=== PATIENT | female | born 1950 | race Caucasian/White ===

== ENCOUNTER 2023-09-03 20:34 | Inpatient (IN) ==
[2023-09-03 20:54] VITALS: BMI 26.6
[2023-09-03 21:24] LABS: BASOPHILS # (AUTO) 0.1 K/uL (0-0.2); BASOPHILS % (AUTO) 0.4 % (0.0-3.0); EOSINOPHILS # (AUTO) 0.1 K/ul (0.0-0.7); EOSINOPHILS % (AUTO) 0.5 % (0.0-7.0); HEMATOCRIT 37.5 % (37.0-47.0); HEMOGLOBIN 12.8 g/dl (12.0-16.0); IMMATURE GRANULOCYTE # (AUTO) 0.2 (0.0-1.0); IMMATURE GRANULOCYTE % (AUTO) 1.1 % (0.0-5.0); LYMPHOCYTES # (AUTO) 0.9 K/uL (0.60-3.4); LYMPHOCYTES % (AUTO) 5.3 (10.0-50.0); MEAN CORPUSCULAR HEMOGLOBIN 31.1 pg (27.0-31.0); MEAN CORPUSCULAR HGB CONC 34.1 (31.8-35.4); MONOCYTES # (AUTO) 1.7 K/uL (0.4-2.0); MONOCYTES % (AUTO) 10.3 (0-10); NEUTROPHILS # (AUTO) 13.3 K/ul (2.0-6.9); NEUTROPHILS % (AUTO) 82.4 % (42.2-75.2); PLATELET COUNT 207 10^3/uL (140-440); RDW COEFFICIENT OF VARIATION 11.8 % (11.6-14.8); RED BLOOD COUNT 4.12 10^6/ul (4.20-5.40); WHITE BLOOD COUNT 16.17 K/ul (4.6-10.2)
--- NOTE | 2023-09-03 21:28 | ED.PDOC ---
General ED Provider: Dr. ANA PARKINSON MD Chief Complaint: Abdominal Pain Stated Complaint: 72 years old female past medical history of anal cancer, A-fib status post Watchman procedure not on anticoagulation coming to the emergency room for epigastric pain patient reports the pain started at 4:00 this afternoon patient describes the pain as sharp and epigastric area nonradiating with no aggravating alleviating factors associated with nausea but no vomiting, admits to having diarrhea alternating with constipation and recent episode of colitis but the pain this time is different. Patient feels warm but did not check her temperature. Denies any urinary problems she has a history of kidney stones but that was many years ago. Otherwise she denies any chest pain, shortness of breath, headache. Time Seen by Provider: 09/03/23 20:45 Information Source: Patient and Family Nursing and Triage Documentation Reviewed and Agree: Yes What is Opioid Naive?: *Opioid Naive implies the patient is not already taking opioids or not chronically receiving opioids on a daily basis. *PRN dosing is not "usually" associated with tolerance. *Patients are at higher risk of over-sedation and aspiration. What is Opioid Tolerant?: *Opioid Tolerance implies less than the expected response to an opioid. *Acquired tolerance is defined by the patient taking 60mg of oral morphine daily (or equianalgesic dose of another opioid) for 1 week or more. *Often associated with chronic pain. *May take more than usual dose to achieve desired pain control. Review of Systems Review Of Systems Constitutional: Reports No symptoms All Other Systems: Reviewed and Negative Physical Exam Physical Exam Appearance: Reports Well-appearing and Well-nourished Ill-appearing: None Pain Distress: Mild Eyes: Reports EDER ENT: Reports Ears normal and Nose normal Respiratory: Reports Airway patent, Breath sounds clear and Breath sounds equal Cardiovascular: Reports RRR, Pulses normal, No rub and No murmur GI/: Reports Soft, No masses, Bowel sounds normal and Tender (Epigastric and right CVA) Musculoskeletal: Reports Normal strength and ROM intact Skin: Reports Warm and Normal color Neurological: Reports Sensation intact and Motor intact Psychiatric: Reports Affect appropriate Course Course 09/03/23 21:18 09/03/23 21:18 Orders, Labs, Meds: Lab Review 09/03/23 09/03/23 09/03/23 21:08 21:18 22:31 WBC 16.17 H RBC 4.12 L Hgb 12.8 Hct 37.5 MCV 91.0 MCH 31.1 H MCHC 34.1 RDW Coeff of Daniel 11.8 Plt Count 207 Immature Gran % (Auto) 1.1 Neut % (Auto) 82.4 H Lymph % (Auto) 5.3 L Sebastian % (Auto) 10.3 H Eos % (Auto) 0.5 Baso % (Auto) 0.4 Neut # (Auto) 13.3 H Lymph # (Auto) 0.9 Sebastian # (Auto) 1.7 Eos # (Auto) 0.1 Baso # (Auto) 0.1 Immature Gran # (Auto) 0.2 Sodium 137.2 Potassium 3.94 Chloride 105.3 Carbon Dioxide 21.2 L Anion Gap 14.64 BUN 27.7 H Creatinine 1.56 H Estimated GFR (MDRD) 32.00 BUN/Creatinine Ratio 17.75 Glucose 120.1 H Lactic Acid 1.56 Calcium 10.01 Total Bilirubin 0.86 AST 28.5 ALT 27.6 Alkaline Phosphatase 98.4 Total Protein 7.98 Albumin 4.92 Globulin 3.06 Albumin/Globulin Ratio 1.60 Lipase 95.9 SARS CoV-2 RNA Rapid VANESSA Negative Orders Category Date Time Status OBSERVATION [PLACE PATIENT OBSERVATION] .TO [facility] ADMISSION 09/03/23 22:39 Active (MONITORED BED) ACTIVITY .Up With Assistance CARE 09/03/23 22:33 Active INTAKE & OUTPUT Q8HR CARE 09/03/23 22:33 Active IV ACCESS ONCE CARE 09/03/23 21:13 Active TELEMETRY MONITORING TELE CARE 09/03/23 22:39 Active VITAL SIGNS Q4HR CARE 09/03/23 22:33 Active NOTHING BY MOUTH DIETARY 09/04/23 Breakfast Ordered BLOOD CULTURE Stat LAB 09/03/23 22:22 Received CBC W/ AUTO DIFF DAILY@0600 LAB 09/04/23 06:00 Ordered CBC W/ AUTO DIFF DAILY@0600 LAB 09/05/23 06:00 Ordered CBC W/ AUTO DIFF Stat LAB 09/03/23 21:18 Completed CMP [COMPREHENSIVE METABOLIC PANEL] Stat LAB 09/03/23 21:18 Completed COMPREHENSIVE METABOLIC PANEL DAILY@0600 LAB 09/04/23 06:00 Ordered COMPREHENSIVE METABOLIC PANEL DAILY@0600 LAB 09/05/23 06:00 Ordered COVID [SARS COV-2 RNA RAPID VANESSA] Stat LAB 09/03/23 22:31 Completed LACTIC ACID Stat LAB 09/03/23 21:08 Completed LIPASE Stat LAB 09/03/23 21:18 Completed URINALYSIS C & S IF INDICATED Stat LAB 09/03/23 23:00 Ordered Acetaminophen Meds 09/03/23 22:16 Discontinued 1,000 mg in 100 ml IV ONCE Acetaminophen Meds 09/03/23 22:34 Active 1,000 mg in 100 ml IV Q6HR Ceftriaxone/D5w 1 gm Premix [Rocephin 1 gm/50 ml D5w] Meds 09/03/23 22:09 Discontinued 1 gm in 50 ml IV ONCE Ceftriaxone/D5w 1 gm Premix [Rocephin 1 gm/50 ml D5w] Meds 09/04/23 22:00 Active 1 gm in 50 ml IV Q24H Ketorolac Tromethamine [Toradol] Meds 09/03/23 22:34 Active 15 mg IVP Q6HR PRN Ketorolac Tromethamine [Toradol] Meds 09/03/23 21:13 Discontinued 30 mg IVP ONCE STA Metoclopramide HCl [Reglan] Meds 09/03/23 22:37 Active 5 mg IVP Q6HR PRN Metronidazole/Sodium Chloride [Flagyl 500 mg/100 ml] Meds 09/03/23 22:09 Discontinued 500 mg in 100 ml IV ONCE Metronidazole/Sodium Chloride [Flagyl 500 mg/100 ml] Meds 09/04/23 05:00 Active 500 mg in 100 ml IV Q8HR Ondansetron HCl/Pf [Zofran 4 mg/2 ml] Meds 09/03/23 21:14 Discontinued 4 mg IVP ONCE STA Ondansetron HCl/Pf [Zofran 4 mg/2 ml] Meds 09/03/23 22:37 Active 4 mg IVP Q6H PRN Sodium Chloride 0.9% [Sodium Chloride] 1,000 ml Meds 09/03/23 21:[address] ABDOMEN/PELVIS WO CONTRAST Stat RADS 09/03/23 21:13 Completed Medications Generic Name Dose Route Start Last Admin Trade Name Freq PRN Reason Stop Dose Admin CEFTRIAXONE/D5W 1 GM PREMIX 1 gm in 50 mls @ 75 mls/hr 09/04/23 22:00 Rocephin 1 Gm/50 Ml D5w IV 09/07/23 21:59 Q24H DIDI Metronidazole 500 mg in 100 mls @ 100 mls/hr 09/04/23 05:00 Flagyl 500 Mg/100 Ml IV 09/07/23 04:59 Q8HR DIDI Acetaminophen 1,000 mg in 100 mls @ 400 mls/hr 09/03/23 22:34 Acetaminophen IV Q6HR PRN Pain Ketorolac Tromethamine 15 mg 09/03/23 22:34 Ketorolac Tromethamine 15 Mg/Ml Vial IVP 09/07/23 22:36 Q6HR PRN MODERATE PAIN Metoclopramide HCl 5 mg 09/03/23 22:37 Metoclopramide Hcl 10 Mg/2 Ml IVP Q6HR PRN nausea Ondansetron HCl 4 mg 09/03/23 22:37 Ondansetron Hcl/Pf 4 Mg/2 Ml Sdv IVP Q6H PRN Nausea / Vomiting Discontinued Medications Generic Name Dose Route Start Last Admin Trade Name Freq PRN Reason Stop Dose Admin Sodium Chloride 1,000 mls @ 1,000 mls/hr 09/03/23 21:13 09/03/23 21:46 Sodium Chloride IV 09/03/23 22:12 1,000 mls/hr BOLUS ONE Administration Metronidazole 500 mg in 100 mls @ 100 mls/hr 09/03/23 22:09 Flagyl 500 Mg/100 Ml IV 09/03/23 23:08 ONCE ONE CEFTRIAXONE/D5W 1 GM PREMIX 1 gm in 50 mls @ 100 mls/hr 09/03/23 22:09 09/03/23 22:51 Rocephin 1 Gm/50 Ml D5w IV 09/03/23 22:38 100 mls/hr ONCE ONE Administration Acetaminophen 1,000 mg in 100 mls @ 400 mls/hr 09/03/23 22:16 09/03/23 22:25 Acetaminophen IV 09/03/23 22:30 400 mls/hr ONCE ONE Administration Ketorolac Tromethamine 30 mg 09/03/23 21:13 09/03/23 21:50 Ketorolac Tromethamine 30 Mg/Ml Vial IVP 09/03/23 21:14 30 mg ONCE STA Administration Ondansetron HCl 4 mg 09/03/23 21:14 09/03/23 21:50 Ondansetron Hcl/Pf 4 Mg/2 Ml Sdv IVP 09/03/23 21:15 4 mg ONCE STA Administration Vital Signs: Temp Pulse Resp BP Pulse Ox 09/03/23 20:43 97.7 F 79 20 152/66 H 100 CAT scan abdomen pelvis showed thickening of the wall of the cecum along with leukocytosis consistent with ascending colitis patient was given Zofran 4 mg for nausea Toradol 30 mg IV for the pain blood cultures were obtained patient was ordered 1 g Rocephin and 500 mg of metronidazole IV. Pain is not controlled with Toradol patient was given 1 g of Tylenol IV. Given the leukocytosis and the CT scan finding patient will need further IV antibiotics called hospitalist on-call Leandra discussed the patient case with her and she cleared the patient to be admitted under her services care plan discussed with the patient all questions and concerns were addressed patient is agreeable for admission Discharge Plan Discharge Patient Disposition: ADMITTED INPATIENT Discharge Problem: Colitis Prescriptions: No Action propafenone 225 mg tablet 225 mg PO TID levothyroxine 50 mcg tablet 50 mcg PO QAM hydrochlorothiazide 25 mg tablet 25 mg PO QAM irbesartan 150 mg tablet 150 mg PO BID rosuvastatin 5 mg tablet 5 mg PO BEDTIME diltiazem HCl [Cardizem] 120 mg tablet 120 mg PO BID Rx Instructions: one mid day, one at bedtime aspirin [Adult Low Dose Aspirin] 81 mg tablet,delayed release (DR/EC) 81 mg PO DAILY Did you review [place] [employer] for ALL controlled substances?: Not Applicable ED Provider: ANA PARKINSON Condition: Stable Physician Progress Note: []
[2023-09-03 21:36] LABS: ALANINE AMINOTRANSFERASE 27.6 U/L (0-35); ALBUMIN 4.92 g/dL (3.5-5.0); ALKALINE PHOSPHATASE 98.4 U/L (53-141); ASPARTATE AMINO TRANSFERASE 28.5 U/L (14-36); BILIRUBIN,TOTAL 0.86 mg/dL (0.2-1.3); BLOOD UREA NITROGEN 27.7 mg/dL (7-17); CALCIUM 10.01 mg/dL (8.4-10.2); CARBON DIOXIDE 21.2 mmol/L (22-30.0); CHLORIDE 105.3 mmol/L (98-107); CREATININE 1.56 mg/dL (0.60-1.30); GLUCOSE 120.1 mg/dL (74-106); LIPASE 95.9 U/L (23-300); POTASSIUM 3.94 mmol/L (3.5-5.1); SODIUM 137.2 mmol/L (134.5-145); TOTAL PROTEIN 7.98 g/dL (6.3-8.2)
[2023-09-03] MEDS: SODIUM CHLORIDE 1,000 ML IV ONE (21:46)
[2023-09-03] MEDS: TORADOL IVP STA (21:50)
[2023-09-03] MEDS: ZOFRAN 4 MG/2 ML IVP STA (21:50)
--- NOTE | 2023-09-03 21:56 | CT ---
EXAM: CT OF THE ABDOMEN AND PELVIS WITHOUT CONTRAST. TECHNIQUE: CT of the abdomen and pelvis was performed without the use of contrast. Multiplanar refo rmats were performed. HISTORY: Abdominal pain. COMPARISON: None. FINDINGS: Evaluation of solid organs and blood vessels is suboptimal without the benefit of contrast. Imaged lower thorax: 1.0 cm nodule, partially imaged on axial image 1. 0.3 cm nodule in the right lo wer lobe. Coronary artery calcificaions. Liver: Diffuse liver parenchymal hypoattenuation. A few scattered calcified granulomas in the liver. Gallbladder/Bile Ducts: No biliary dilation. Gallbladder is unremarkable. Spleen: Scattered calcified granulomas in the spleen. Pancreas: Unremarkable. Adrenals: Unremarkable. Kidneys/Ureters: Unremarkable. Bowel/mesentery/peritoneum: Small hiatal hernia. Normal appendix. Focal thickening of the wall of the cecum. No free air or ascites. Retroperitoneum/vessels: No aortic aneurysm. Mild scattered atherosclerotic calcifications. Pelvis: Post hysterectomy. Bones/body wall: No aggressive lesion identified. Multilevel degenerative changes of the spine. IMPRESSION: Focal thickening of the wall the cecum could represent infection/inflammation or neoplasm. [place] py should be considered if not performed recently. 1 cm nodule in the right lobe of the lung. Recommend further evaluation with chest CT. Small hiatal hernia. Fatty infiltration of the liver. Atherosclerosis with coronary calcifications. All CT scans are performed using dose optimization techniques as appropriate to the performed exam an d include at least one of the following: Automated exposure control, adjustment of the mA and/or kV according t o size, and the use of iterative reconstruction technique.
[2023-09-03] MEDS: ACETAMINOPHEN 1,000 MG/100 ML BAG IV ONE (22:25)
[2023-09-03] MEDS ORDERED: ZOFRAN 4 MG/2 ML IVP PRN (22:37)
[2023-09-03 22:50] LABS: SARS COV-2 RNA RAPID NAAT NEGATIVE (NEGATIVE)
[2023-09-03] MEDS: ROCEPHIN 1 GM/50 ML D5W 1 GM/50 ML BAG IV ONE (22:51)
[2023-09-03] MEDS ORDERED: TORADOL IVP PRN (23:14)
[2023-09-03 23:18] LABS: BILIRUBIN,URINE Negative (NEGATIVE); CLARITY,URINE Clear (CLEAR); COLOR,URINE Yellow (YELLOW); GLUCOSE, URINE (UA) Negative (NEGATIVE); KETONES,URINE 1+ (NEGATIVE); LEUKOCYTE ESTERASE ,URINE 2+ (NEGATIVE); NITRITE,URINE Negative (NEGATIVE); PH,URINE 6.5 (5-9); PROTEIN,URINE Negative (NEGATIVE); URINE, BLOOD Trace-intact (NEGATIVE); UROBILINOGEN,URINE 0.2 (0.2)
[2023-09-03 23:21] LABS: BACTERIA,URINE 2+ (NOT PRESENT); SQUAMOUS EPITHELIAL CELL,UR 0-2 (0-5)
[2023-09-03] MEDS: FLAGYL 500 MG/100 ML 500 MG/100 ML BAG IV ONE (23:43)
[2023-09-04] MEDS: TORADOL IVP PRN (01:29)
[2023-09-04] MEDS ORDERED: PROPAFENONE 225 MG PO SCH (01:45)
[2023-09-04] MEDS: SYNTHROID PO SCH (05:41)
[2023-09-04] MEDS: FLAGYL 500 MG/100 ML 500 MG/100 ML BAG IV SCH (05:41)
[2023-09-04 06:27] LABS: ALANINE AMINOTRANSFERASE 25.6 U/L (0-35); ALBUMIN 4.67 g/dL (3.5-5.0); ALKALINE PHOSPHATASE 85.9 U/L (53-141); ASPARTATE AMINO TRANSFERASE 26.1 U/L (14-36); BILIRUBIN,TOTAL 0.65 mg/dL (0.2-1.3); BLOOD UREA NITROGEN 21.1 mg/dL (7-17); CALCIUM 9.5 mg/dL (8.4-10.2); CARBON DIOXIDE 21.1 mmol/L (22-30.0); CHLORIDE 107.8 mmol/L (98-107); CREATININE 1.28 mg/dL (0.60-1.30); GLUCOSE 101.7 mg/dL (74-106); POTASSIUM 3.63 mmol/L (3.5-5.1); SODIUM 138.5 mmol/L (134.5-145); TOTAL PROTEIN 7.48 g/dL (6.3-8.2)
[2023-09-04 07:15] LABS: BASOPHILS % (AUTO) 0.2 % (0.0-3.0); EOSINOPHILS # (AUTO) 0.1 K/ul (0.0-0.7); EOSINOPHILS % (AUTO) 0.5 % (0.0-7.0); HEMOGLOBIN 12.1 g/dl (12.0-16.0); IMMATURE GRANULOCYTE # (AUTO) 0.1 (0.0-1.0); IMMATURE GRANULOCYTE % (AUTO) 1.1 % (0.0-5.0); LYMPHOCYTES # (AUTO) 0.8 K/uL (0.60-3.4); LYMPHOCYTES % (AUTO) 6.3 (10.0-50.0); MEAN CORPUSCULAR HEMOGLOBIN 31.2 pg (27.0-31.0); MEAN CORPUSCULAR HGB CONC 33.6 (31.8-35.4); MEAN CORPUSCULAR VOLUME 92.8 fl (81.0-99.0); MONOCYTES # (AUTO) 2.1 K/uL (0.4-2.0); MONOCYTES % (AUTO) 16.1 (0-10); NEUTROPHILS # (AUTO) 9.8 K/ul (2.0-6.9); NEUTROPHILS % (AUTO) 75.8 % (42.2-75.2); PLATELET COUNT 175 10^3/uL (140-440); RDW COEFFICIENT OF VARIATION 12.1 % (11.6-14.8); RED BLOOD COUNT 3.88 10^6/ul (4.20-5.40); WHITE BLOOD COUNT 12.89 K/ul (4.6-10.2)
[2023-09-04] MEDS: ACETAMINOPHEN 1,000 MG/100 ML BAG IV PRN (07:29)
[2023-09-04] MEDS: AVAPRO PO SCH (09:36)
[2023-09-04] MEDS: CARDIZEM PO SCH (09:36)
[2023-09-04] MEDS: ASPIRIN EC PO SCH (09:36)
[2023-09-04] MEDS: HYDROCHLOROTHIAZIDE PO SCH (09:36)
[2023-09-04] MEDS: PROCARDIA XL PO SCH (09:37)
[2023-09-04] MEDS: RYTHMOL PO SCH (09:39)
[2023-09-04] MEDS: MYLANTA SUSP PO STA (10:22)
[2023-09-04] MEDS: PROTONIX IVP SCH (10:31)
[2023-09-04] MEDS: PEPCID IVP SCH (10:31)
[2023-09-04] MEDS ORDERED: NARCAN IM PRN ×2 (11:16→21:00)
--- NOTE | 2023-09-04 12:26 | PCM ---
Date of Service Date Seen by Provider: 09/04/23 Time Seen by Provider: 08:50 Admit Day/Time Admission Date: 09/03/23 Admission Time: 22:39 Reason for Admission Chief Complaint: COLITIS Hospital Provider Hospital Provider: Niranjan Dial Pa-C, [facility] History of Present Illness History of Present Illness: Patient is a 72 year old female with pmhx of anal cancer s/p resection/chemo/radiation 4 years ago, hypertension, a fib s/p watchman device, who presents to ER with complaints of abdominal pain. Pt states she had right sided colitis a year ago requiring antibiotics. Last colonoscopy was summer which was normal, return in 5 years per patient. She denies vomiting but has had some nausea. No change in BMs. Describes pain as epigastric, stabbing. Does not take NSAIDs. In ER ct noted inflammation/infection of cecum area. WBC count was 16. She was given rocephin and metronidazole. Admitted to med surg. On my evaluation today patient complains of epigastric pain, no pain in RLQ area. Case Discussed With Case Discussed With: Patient's case was discussed with the ER Physicians, Dr. Payne [facility] Medical History Kidney disease N28.9 - Disorder of kidney and ureter, unspecified (ICD-10) Hemorrhoid K64.9 - Unspecified hemorrhoids (ICD-10) GI bleeding K92.2 - Gastrointestinal hemorrhage, unspecified (ICD-10) Presence of Watchman left atrial appendage closure device Z95.818 - Presence of other cardiac implants and grafts (ICD-10) Anal cancer C21.0 - Malignant neoplasm of anus, unspecified (ICD-10) Uncontrolled hypertension I10 - Essential (primary) hypertension (ICD-10) Implantable loop recorder present Z95.818 - Presence of other cardiac implants and grafts (ICD-10) Afib I48.91 - Unspecified atrial fibrillation (ICD-10) A-fib I48.91 - Unspecified atrial fibrillation (ICD-10) Family History FATHER Pancreatic cancer Mother Cirrhosis of liver Social History Substance use type: does not use Allergies Allergies Allergy/AdvReac Type Severity Reaction Status Date / Time hydrocodone AdvReac Verified 09/03/23 21:45 oxycodone AdvReac Verified 09/03/23 21:45 Sulfa (Sulfonamide AdvReac Verified 09/03/23 21:45 Antibiotics) Current Medications Home Medications aspirin 81 mg tablet,delayed release (Adult Low Dose Aspirin) 81 mg PO DAILY [History Confirmed 09/03/23 Last Taken Unknown] diltiazem HCl 120 mg tablet (Cardizem) 120 mg PO BID 09/03/23 [History Confirmed 09/03/23 Last Taken Unknown] hydrochlorothiazide 25 mg tablet 25 mg PO QAM 09/03/23 [History Confirmed 09/03/23 Last Taken Unknown] irbesartan 150 mg tablet 150 mg PO BID 09/03/23 [History Confirmed 09/03/23 Last Taken Unknown] levothyroxine 50 mcg tablet 50 mcg PO QAM 09/03/23 [History Confirmed 09/03/23 Last Taken Unknown] propafenone 225 mg tablet 225 mg PO TID 09/03/23 [History Confirmed 09/03/23 Last Taken Unknown] rosuvastatin 5 mg tablet 5 mg PO BEDTIME 09/03/23 [History Confirmed 09/03/23 Last Taken Unknown] nifedipine 90 mg tablet,extended release 24 hr 90 mg PO DAILY 09/04/23 [History Confirmed 09/04/23 Last Taken Unknown] Home Aspirin (Aspirin 81 Mg Tablet.) 81 mg PO DAILY [facility] Last Admin: 09/04/23 09:36 Dose: Not Given Calcium Carbonate/Glycine (Calcium Carbonate 500 Mg Tab.Chew) 500 mg PO Q6H PRN PRN Reason: Heartburn Diltiazem HCl (Diltiazem Hcl 60 Mg Tablet) 120 mg PO BID [facility] Last Admin: 09/04/23 09:36 Dose: Not Given Famotidine (Famotidine Inj 20 Mg/2 Ml Vial) 20 mg IVP Q12HR [facility] Last Admin: 09/04/23 10:31 Dose: 20 mg Hydrochlorothiazide (Hydrochlorothiazide 25 Mg Tablet) 25 mg PO QAM [facility] Last Admin: 09/04/23 09:36 Dose: Not Given CEFTRIAXONE/D5W 1 GM PREMIX (Rocephin 1 Gm/50 Ml D5w) 1 gm in 50 mls @ 75 mls/hr IV BEDTIME [facility] Stop: 09/07/23 20:59 Metronidazole (Flagyl 500 Mg/100 Ml) 500 mg in 100 mls @ 100 mls/hr IV Q8HR [facility] Stop: 09/07/23 04:59 Last Admin: 09/04/23 13:48 Dose: 100 mls/hr Acetaminophen (Acetaminophen) 1,000 mg in 100 mls @ 400 mls/hr IV Q6HR PRN PRN Reason: Pain Last Admin: 09/04/23 07:29 Dose: 400 mls/hr Irbesartan (Irbesartan 150 Mg Tablet) 150 mg PO BID [facility] Last Admin: 09/04/23 09:36 Dose: Not Given Levothyroxine Sodium (Levothyroxine Sodium 50 Mcg Tablet) 50 mcg PO 0600 [facility] Last Admin: 09/04/23 05:41 Dose: 50 mcg Metoclopramide HCl (Metoclopramide Hcl 10 Mg/2 Ml) 5 mg IVP Q6HR PRN PRN Reason: nausea Morphine Sulfate (Morphine Sulfate 2 Mg/Ml Syringe) 1 mg IVP Q6H PRN PRN Reason: Abdominal Pain Naloxone HCl (Naloxone Hcl 2 Mg/2 Ml Disp.Syrin) 2 mg IM Q2MIN PRN PRN Reason: POSS>3 Nifedipine (Nifedipine 30 Mg Tab.Er.24) 90 mg PO DAILY [facility] Last Admin: 09/04/23 09:37 Dose: Not Given Ondansetron HCl (Ondansetron Hcl/Pf 4 Mg/2 Ml Sdv) 4 mg IVP Q6H PRN PRN Reason: Nausea / Vomiting Pantoprazole Sodium (Pantoprazole Sodium 40 Mg Vial) 40 mg IVP BID [facility] Last Admin: 09/04/23 10:31 Dose: 40 mg Propafenone HCl (Propafenone Hcl 150 Mg Tablet) 225 mg PO TID [facility] Last Admin: 09/04/23 09:39 Dose: Not Given Rosuvastatin Calcium (Rosuvastatin Calcium 10 Mg Tablet) 5 mg PO BEDTIME [facility] Discontinued Medications Al Hydroxide/Mg Hydroxide (Mag Hydrox/Al Hydrox/Simeth 30 Ml Cup) 30 ml PO ONCE STA Stop: 09/04/23 09:42 Last Admin: 09/04/23 10:22 Dose: 30 ml Sodium Chloride (Sodium Chloride) 1,000 mls @ 1,000 mls/hr IV BOLUS ONE Stop: 09/03/23 22:12 Last Infusion: 09/03/23 22:46 Dose: Infused Metronidazole (Flagyl 500 Mg/100 Ml) 500 mg in 100 mls @ 100 mls/hr IV ONCE ONE Stop: 09/03/23 23:08 Last Admin: 09/03/23 23:43 Dose: 100 mls/hr CEFTRIAXONE/D5W 1 GM PREMIX (Rocephin 1 Gm/50 Ml D5w) 1 gm in 50 mls @ 100 mls/hr IV ONCE ONE Stop: 09/03/23 22:38 Last Admin: 09/03/23 22:51 Dose: 100 mls/hr Acetaminophen (Acetaminophen) 1,000 mg in 100 mls @ 400 mls/hr IV ONCE ONE Stop: 09/03/23 22:30 Last Admin: 09/03/23 22:25 Dose: 400 mls/hr Ketorolac Tromethamine (Ketorolac Tromethamine 30 Mg/Ml Vial) 30 mg IVP ONCE STA Stop: 09/03/23 21:14 Last Admin: 09/03/23 21:50 Dose: 30 mg Ketorolac Tromethamine (Ketorolac Tromethamine 15 Mg/Ml Vial) 15 mg IVP Q6HR PRN PRN Reason: MODERATE PAIN Stop: 09/07/23 22:36 Last Admin: 09/04/23 08:36 Dose: 15 mg Non-Formulary Medication (Rosuvastatin) 5 mg PO BEDTIME DIDI Ondansetron HCl (Ondansetron Hcl/Pf 4 Mg/2 Ml Sdv) 4 mg IVP ONCE STA Stop: 09/03/23 21:15 Last Admin: 09/03/23 21:50 Dose: 4 mg Opioid Naive vs. Tolerant Does Patient Take Opioids?: No Is Patient Opioid Naive?: Yes What is Opioid Naive?: *Opioid Naive implies the patient is not already taking opioids or not chronically receiving opioids on a daily basis. *PRN dosing is not "usually" associated with tolerance. *Patients are at higher risk of over-sedation and aspiration. Is Patient Opioid Tolerant?: No What is Opioid Tolerant?: *Opioid Tolerance implies less than the expected response to an opioid. *Acquired tolerance is defined by the patient taking 60mg of oral morphine daily (or equianalgesic dose of another opioid) for 1 week or more. *Often associated with chronic pain. *May take more than usual dose to achieve desired pain control. Review of Systems Constitutional: Denies Fever or Weakness Head: Reports Normocephalic and Atraumatic Cardiovascular: Denies Chest pain or Chest Pressure Respiratory: Denies Cough or Shortness of air Gastrointestinal: Reports Nausea and Abdominal pain; Denies Vomiting, Diarrhea or Melena Genitourinary: Denies Dysuria or Frequency Dermatologic: Denies Rashes Physical examination Most Recent Vital Signs: Most Recent Vital Signs Temperature 98.2 F 09/04/23 10:00 Temperature Source Temporal Artery Scan 09/04/23 10:00 Temperature Source Infrared 09/03/23 20:43 Pulse Rate 73 09/04/23 10:00 Respiratory Rate 16 09/04/23 10:00 Blood Pressure 130/70 09/04/23 10:00 Blood Pressure Mean 90 09/04/23 10:00 Blood Pressure Left Arm 136/83 09/04/23 00:36 Blood Pressure Location Left Arm 09/04/23 10:00 Blood Pressure Position Supine 09/04/23 10:00 O2 Sat by Pulse Oximetry 96 09/04/23 10:00 Oxygen Delivery Method Room Air 09/04/23 11:00 Height 5 ft 5 in 09/04/23 00:36 Weight 160 lb 4.8 oz 09/04/23 00:36 Telemetry Type Remote Telemetry 09/04/23 07:00 Telemetry Monitoring Continues 09/04/23 07:00 Telemetry Heart Rate 71 09/04/23 07:00 EKG NE Interval 0.26 H 09/04/23 07:00 EKG QRS Interval 0.10 09/04/23 07:00 Telemetry Strip Reading SR WITH 1ST DEGREE AVB 09/04/23 07:00 Appearance: Positive Well-appearing, Well-nourished, No Apparent Distress and Alert and Oriented x3 Skin: Positive [place], Warm and Good Turgor; Negative Rashes HEENT: Positive Normocephalic and Atraumatic Neck: Positive Supple and Midline Trachea Chest/Lungs: Positive Clear to Auscultation Bilaterally; Negative Rales, Rhonci or Wheezes Heart: Positive RRR GI/: Positive Soft, Bowel Sounds Normal, No Distention and Tender (+epigastric ) Extremities: Negative Edema Neurological: Positive Cranial Nerves Intact, Alert and Oriented Psychiatric: Positive Oriented x4, Appropriate Mood and Appropriate Affect Labs This Visit Labs This Visit: Labs This Visit 09/03/23 09/03/23 09/03/23 21:08 21:18 22:31 WBC 16.17 H RBC 4.12 L Hgb 12.8 Hct 37.5 MCV 91.0 MCH 31.1 H MCHC 34.1 RDW Coeff of Daniel 11.8 Plt Count 207 Immature Gran % (Auto) 1.1 Neut % (Auto) 82.4 H Lymph % (Auto) 5.3 L [place] % (Auto) 10.3 H Eos % (Auto) 0.5 Baso % (Auto) 0.4 Neut # (Auto) 13.3 H Lymph # (Auto) 0.9 [place] # (Auto) 1.7 Eos # (Auto) 0.1 Baso # (Auto) 0.1 Immature Gran # (Auto) 0.2 Sodium 137.2 Potassium 3.94 Chloride 105.3 Carbon Dioxide 21.2 L Anion Gap 14.64 BUN 27.7 H Creatinine 1.56 H Estimated GFR (MDRD) 32.00 BUN/Creatinine Ratio 17.75 Glucose 120.1 H Lactic Acid 1.56 Calcium 10.01 Total Bilirubin 0.86 AST 28.5 ALT 27.6 Alkaline Phosphatase 98.4 Total Protein 7.98 Albumin 4.92 Globulin 3.06 Albumin/Globulin Ratio 1.60 Lipase 95.9 Urine Color Urine Clarity Urine pH Ur Specific [place] Urine Protein Urine Glucose (UA) Urine Ketones Urine Blood Urine Nitrite Urine Bilirubin Urine Urobilinogen Ur Leukocyte Esterase Urine Microscopic RBC Urine Microscopic WBC Ur Squamous Epith Cells Urine Bacteria SARS CoV-2 RNA Rapid VANESSA Negative 09/03/23 09/04/23 23:15 05:31 WBC 12.89 H RBC 3.88 L Hgb 12.1 Hct 36.0 L MCV 92.8 MCH 31.2 H MCHC 33.6 RDW Coeff of Daniel 12.1 Plt Count 175 Immature Gran % (Auto) 1.1 Neut % (Auto) 75.8 H Lymph % (Auto) 6.3 L [place] % (Auto) 16.1 H Eos % (Auto) 0.5 Baso % (Auto) 0.2 Neut # (Auto) 9.8 H Lymph # (Auto) 0.8 [place] # (Auto) 2.1 H Eos # (Auto) 0.1 Baso # (Auto) 0.0 Immature Gran # (Auto) 0.1 Sodium 138.5 Potassium 3.63 Chloride 107.8 H Carbon Dioxide 21.1 L Anion Gap 13.23 BUN 21.1 H Creatinine 1.28 Estimated GFR (MDRD) 41.00 BUN/Creatinine Ratio 16.48 Glucose 101.7 Lactic Acid Calcium 9.50 Total Bilirubin 0.65 AST 26.1 ALT 25.6 Alkaline Phosphatase 85.9 Total Protein 7.48 Albumin 4.67 Globulin 2.81 Albumin/Globulin Ratio 1.66 Lipase Urine Color Yellow Urine Clarity Clear Urine pH 6.5 Ur Specific [place] 1.020 Urine Protein Negative Urine Glucose (UA) Negative Urine Ketones 1+ H Urine Blood Trace-intact H Urine Nitrite Negative Urine Bilirubin Negative Urine Urobilinogen 0.2 Ur Leukocyte Esterase 2+ H Urine Microscopic RBC 2-5 Urine Microscopic WBC 10-20 Ur Squamous Epith Cells 0-2 Urine Bacteria 2+ SARS CoV-2 RNA Rapid VANESSA Imaging Imaging: EXAM: CT OF THE ABDOMEN AND PELVIS WITHOUT CONTRAST. TECHNIQUE: CT of the abdomen and pelvis was performed without the use of contrast. Multiplanar reformats were performed. HISTORY: Abdominal pain. COMPARISON: None. FINDINGS: Evaluation of solid organs and blood vessels is suboptimal without the benefit of contrast. Imaged lower thorax: 1.0 cm nodule, partially imaged on axial image 1. 0.3 cm nodule in the right lower lobe. Coronary artery calcificaions. Liver: Diffuse liver parenchymal hypoattenuation. A few scattered calcified granulomas in the liver. Gallbladder/Bile Ducts: No biliary dilation. Gallbladder is unremarkable. Spleen: Scattered calcified granulomas in the spleen. Pancreas: Unremarkable. Adrenals: Unremarkable. Kidneys/Ureters: Unremarkable. Bowel/mesentery/peritoneum: Small hiatal hernia. Normal appendix. Focal thickening of the wall of the cecum. No free air or ascites. Retroperitoneum/vessels: No aortic aneurysm. Mild scattered atherosclerotic calcifications. Pelvis: Post hysterectomy. Bones/body wall: No aggressive lesion identified. Multilevel degenerative changes of the spine. IMPRESSION: Focal thickening of the wall the cecum could represent infection/inflammation or neoplasm. Colonoscopy should be considered if not performed recently. 1 cm nodule in the right lobe of the lung. Recommend further evaluation with chest CT. Small hiatal hernia. Fatty infiltration of the liver. Atherosclerosis with coronary calcifications. Review Statement Review Statement: I have independently reviewed and interpreted the labs/EKGs/imaging that were ordered by the ER provider. I have reviewed all outside records that are available currently in our EMR including imaging/notes/labs from previous visits. Plan Plan: 1. Acute colitis of cecum - Cont rocephin and metronidazole, NPO, advance as tolerated. Morphine, tylenol for pain. Zofran for nausea. Would recommend f/u with GI after hospitalization due to history of anal cancer. 2. Gastritis - Mylanta, tums, pepcid, and protonix ordered. 3. Suspect UTI - Rocephin ordered. Urine culture pending. 4. Right lung nodule, 1 cm - F/u outpatient 5. A fib - Cont home meds 6. Hypertension - Cont home meds DVT Prophylaxis: Ambulation Time Spent: Greater than 80 minutes spent with patient, 50% of the time spent with this patient was devoted to counseling and coordination of care. Advanced Care Plannin minutes spent discussing advance care planning. FULL CODE Admit to: Obs, made inpatient today Discussed Plan of Care with Dr. Jt Johnson. Medications Medication Orders: Medications Ordered Category Date Time Status Acetaminophen Meds 09/03/23 22:34 Active 1,000 mg in 100 ml IV Q6HR Aspirin [Aspirin EC] Meds 09/04/23 09:00 Active 81 mg PO DAILY Calcium Carbonate [Tums Chewable] Meds 09/04/23 09:41 Active 500 mg PO Q6H PRN Ceftriaxone/D5w 1 gm Premix [Rocephin 1 gm/50 ml D5w] Meds 09/04/23 21:00 Active 1 gm in 50 ml IV BEDTIME Diltiazem HCl [Cardizem] Meds 09/04/23 09:00 Active 120 mg PO BID Famotidine Inj [Pepcid] Meds 09/04/23 09:45 Active 20 mg IVP Q12HR Hydrochlorothiazide Meds 09/04/23 09:00 Active 25 mg PO QAM Irbesartan [Avapro] Meds 09/04/23 09:00 Active 150 mg PO BID Levothyroxine Sodium [Synthroid] Meds 09/04/23 06:00 Active 50 mcg PO 0600 Metoclopramide HCl [Reglan] Meds 09/03/23 22:37 Active 5 mg IVP Q6HR PRN Metronidazole/Sodium Chloride [Flagyl 500 mg/100 ml] Meds 09/04/23 05:00 Active 500 mg in 100 ml IV Q8HR Morphine Sulfate [Morphine 2 mg/ml Syringe] Meds 09/04/23 11:16 Active 1 mg IVP Q6H PRN Naloxone HCl [Narcan] Meds 09/04/23 11:16 Active 2 mg IM Q2MIN PRN Nifedipine [Procardia Xl] Meds 09/04/23 09:00 Active 90 mg PO DAILY Ondansetron HCl/Pf [Zofran 4 mg/2 ml] Meds 09/03/23 22:37 Active 4 mg IVP Q6H PRN Pantoprazole Sodium [Protonix] Meds 09/04/23 09:45 Active 40 mg IVP BID Propafenone HCl [Rythmol] Meds 09/04/23 09:00 Active 225 mg PO TID Rosuvastatin Calcium [Crestor] Meds 09/04/23 21:00 Active 5 mg PO BEDTIME
[2023-09-04] MEDS: MORPHINE 2 MG/ML SYRINGE IVP PRN (14:53)
[2023-09-04] MEDS: TUMS CHEWABLE PO PRN (16:06)
[2023-09-04] MEDS: SUBLIMAZE IVP ONE (16:32)
[2023-09-04] MEDS ORDERED: PHENERGAN 25 MG/ML VIAL 12.5 MG in SODIUM CHLORIDE 50 ML IV ONE (16:45)
[2023-09-04] MEDS: PHENERGAN 25 MG/ML VIAL IM ONE (17:19)
[2023-09-04] MEDS: PHENERGAN 25 MG/ML VIAL ONE ×2 (17:36→17:37)
[2023-09-04] MEDS: ROCEPHIN 1 GM/50 ML D5W 1 GM/50 ML BAG IV SCH (20:14)
[2023-09-04] MEDS ORDERED: MYLANTA SUSP PO PRN (21:00)
[2023-09-04] MEDS: PHENERGAN TAB PO PRN (22:17)
[2023-09-04] MEDS: CRESTOR PO SCH (22:21)
[2023-09-04] MEDS: SUBLIMAZE IVP PRN (22:22)
[2023-09-04] MEDS: CARAFATE PO SCH (22:34)
[2023-09-05 05:36] LABS: BASOPHILS % (AUTO) 0.2 % (0.0-3.0); EOSINOPHILS # (AUTO) 0.1 K/ul (0.0-0.7); EOSINOPHILS % (AUTO) 0.5 % (0.0-7.0); HEMATOCRIT 36.1 % (37.0-47.0); HEMOGLOBIN 11.8 g/dl (12.0-16.0); IMMATURE GRANULOCYTE # (AUTO) 0.2 (0.0-1.0); IMMATURE GRANULOCYTE % (AUTO) 1.5 % (0.0-5.0); LYMPHOCYTES # (AUTO) 0.6 K/uL (0.60-3.4); LYMPHOCYTES % (AUTO) 5.6 (10.0-50.0); MEAN CORPUSCULAR HEMOGLOBIN 30.6 pg (27.0-31.0); MEAN CORPUSCULAR HGB CONC 32.7 (31.8-35.4); MEAN CORPUSCULAR VOLUME 93.5 fl (81.0-99.0); MONOCYTES # (AUTO) 1.7 K/uL (0.4-2.0); MONOCYTES % (AUTO) 14.8 (0-10); NEUTROPHILS # (AUTO) 8.8 K/ul (2.0-6.9); NEUTROPHILS % (AUTO) 77.4 % (42.2-75.2); PLATELET COUNT 163 10^3/uL (140-440); RDW COEFFICIENT OF VARIATION 11.9 % (11.6-14.8); RED BLOOD COUNT 3.86 10^6/ul (4.20-5.40); WHITE BLOOD COUNT 11.38 K/ul (4.6-10.2)
[2023-09-05 05:54] LABS: ALANINE AMINOTRANSFERASE 39.2 U/L (0-35); ALBUMIN 4.37 g/dL (3.5-5.0); ASPARTATE AMINO TRANSFERASE 33.7 U/L (14-36); BILIRUBIN,TOTAL 0.79 mg/dL (0.2-1.3); BLOOD UREA NITROGEN 18.5 mg/dL (7-17); CALCIUM 9.21 mg/dL (8.4-10.2); CARBON DIOXIDE 21.3 mmol/L (22-30.0); CHLORIDE 106.5 mmol/L (98-107); CREATININE 1.17 mg/dL (0.60-1.30); GLUCOSE 87.9 mg/dL (74-106); LIPASE 57.9 U/L (23-300); POTASSIUM 3.57 mmol/L (3.5-5.1); SODIUM 137.6 mmol/L (134.5-145); TOTAL PROTEIN 7.21 g/dL (6.3-8.2)
[2023-09-05] MEDS ORDERED: FLAGYL 500 MG/100 ML 500 MG/100 ML BAG IV SCH (06:00)
[2023-09-05] MEDS: COLACE PO SCH (10:38)
--- NOTE | 2023-09-05 11:21 | PCM.PROG ---
Date/Time Seen Date Seen by Provider: 09/05/23 Time Seen by Provider: 08:50 Provider Provider: [facility]C, [facility] Chief Complaint Chief Complaint: COLITIS Subjective Subjective: Patient's epigastric pain is improved today and more tolerated. She was able to eat a popsicle this morning. Now complaining of RLQ pain, feels as though she needs to have a BM. Doesn't feel ready to go home. Worried about her at home however. Had a run of NSVT x22 beats this morning. Objective Appearance: Positive Well-appearing, No Apparent Distress and Alert and Oriented x3 Chest/Lungs: Positive Clear to Auscultation Bilaterally; Negative Rales, Rhonci or Wheezes Heart: Positive RRR GI/: Positive Soft, Bowel Sounds Normal and Tender (+epigastric, RLQ tenderness. No rebound. ) Neurological: Positive Cranial Nerves Intact, Alert and Oriented Vital Signs Vital Signs: Vital Signs: Last 24 Hours 09/04/23 12:00 09/04/23 12:51 09/04/23 13:00 Temperature Temperature Source Pulse Rate Respiratory Rate Blood Pressure Blood Pressure Mean Blood Pressure Location Blood Pressure Position O2 Sat by Pulse Oximetry Oxygen Delivery Method Room Air Room Air Telemetry Type Remote Telemetry Telemetry Monitoring Continues Telemetry Heart Rate 66 EKG NH Interval 0.24 H EKG QRS Interval 0.10 Telemetry Strip Reading SR WITH 1ST DEGREE AVB 09/04/23 14:00 09/04/23 14:00 09/04/23 15:00 Temperature 98.6 F Temperature Source Temporal Artery Scan Pulse Rate 72 Respiratory Rate 18 Blood Pressure 141/74 H Blood Pressure Mean 96 Blood Pressure Location Left Arm Blood Pressure Position Supine O2 Sat by Pulse Oximetry 98 Oxygen Delivery Method Room Air Room Air Room Air Telemetry Type Telemetry Monitoring Telemetry Heart Rate EKG NH Interval EKG QRS Interval Telemetry Strip Reading 09/04/23 16:00 09/04/23 17:00 09/04/23 18:00 Temperature Temperature Source Pulse Rate Respiratory Rate Blood Pressure Blood Pressure Mean Blood Pressure Location Blood Pressure Position O2 Sat by Pulse Oximetry Oxygen Delivery Method Room Air Room Air Room Air Telemetry Type Telemetry Monitoring Telemetry Heart Rate EKG NH Interval EKG QRS Interval Telemetry Strip Reading 09/04/23 18:00 09/04/23 19:00 09/04/23 19:00 Temperature 99.2 F Temperature Source Temporal Artery Scan Pulse Rate 86 Respiratory Rate 15 Blood Pressure 136/81 Blood Pressure Mean 99 Blood Pressure Location Left Arm Blood Pressure Position Supine O2 Sat by Pulse Oximetry 97 Oxygen Delivery Method Room Air Room Air Telemetry Type Remote Telemetry Telemetry Monitoring Continues Telemetry Heart Rate 84 EKG NH Interval 0.24 H EKG QRS Interval 0.09 Telemetry Strip Reading SR with AVB and PAC's 09/04/23 19:41 09/04/23 20:00 09/04/23 20:44 Temperature 99.3 F Temperature Source Oral Pulse Rate 85 Respiratory Rate 18 Blood Pressure 124/61 Blood Pressure Mean 82 Blood Pressure Location Right Arm Blood Pressure Position Supine O2 Sat by Pulse Oximetry 96 Oxygen Delivery Method Room Air Room Air Room Air Telemetry Type Telemetry Monitoring Telemetry Heart Rate EKG NH Interval EKG QRS Interval Telemetry Strip Reading 09/05/23 01:00 09/05/23 05:32 09/05/23 07:00 Temperature 99.3 F Temperature Source Temporal Artery Scan Pulse Rate 117 H Respiratory Rate 20 Blood Pressure 127/69 Blood Pressure Mean 88 Blood Pressure Location Left Arm Blood Pressure Position Sitting O2 Sat by Pulse Oximetry 96 Oxygen Delivery Method Room Air Telemetry Type Remote Telemetry Bedside Monitor Telemetry Monitoring Continues Continues Telemetry Heart Rate 73 87 EKG NH Interval 0.11 L EKG QRS Interval 0.10 0.10 Telemetry Strip Reading a fib SR Lab Results Lab Results: Lab Results: Last 24 Hours 09/05/23 05:11 WBC 11.38 H RBC 3.86 L Hgb 11.8 L Hct 36.1 L MCV 93.5 MCH 30.6 MCHC 32.7 RDW Coeff of Daniel 11.9 Plt Count 163 Immature Gran % (Auto) 1.5 Neut % (Auto) 77.4 H Lymph % (Auto) 5.6 L [place] % (Auto) 14.8 H Eos % (Auto) 0.5 Baso % (Auto) 0.2 Neut # (Auto) 8.8 H Lymph # (Auto) 0.6 [place] # (Auto) 1.7 Eos # (Auto) 0.1 Baso # (Auto) 0.0 Immature Gran # (Auto) 0.2 Sodium 137.6 Potassium 3.57 Chloride 106.5 Carbon Dioxide 21.3 L Anion Gap 13.37 BUN 18.5 H Creatinine 1.17 Estimated GFR (MDRD) 45.00 BUN/Creatinine Ratio 15.81 Glucose 87.9 Calcium 9.21 Magnesium 2.35 H Total Bilirubin 0.79 AST 33.7 ALT 39.2 H Alkaline Phosphatase 98.0 Total Protein 7.21 Albumin 4.37 Globulin 2.84 Albumin/Globulin Ratio 1.53 Lipase 57.9 Additional Comments Additional Comments: I have independently reviewed and interpreted the labs/EKGs/imaging ordered during this hospital stay. I have reviewed outside records that are available in our EMR that pertain to medical stay including imaging/notes/labs from previous visits. Active Medications Active Medications: Medications Generic Name Dose Route Start Last Admin Trade Name Freq PRN Reason Stop Dose Admin Al Hydroxide/Mg Hydroxide 30 ml 09/04/23 21:00 Mag Hydrox/Al Hydrox/Simeth 30 Ml Cup PO Q12HR PRN Heartburn Calcium Carbonate/Glycine 500 mg 09/04/23 09:41 09/04/23 16:06 Calcium Carbonate 500 Mg Tab.Chew PO 500 mg Q6H PRN Administration Heartburn Diltiazem HCl 120 mg 09/04/23 09:00 09/05/23 09:14 Diltiazem Hcl 60 Mg Tablet PO 120 mg BID DIDI Administration Docusate Sodium 100 mg 09/05/23 09:30 09/05/23 10:38 Docusate Sodium 100 Mg Capsule PO 100 mg BID DIDI Administration Famotidine 20 mg 09/04/23 09:45 09/05/23 09:13 Famotidine Inj 20 Mg/2 Ml Vial IVP 20 mg Q12HR DIDI Administration Fentanyl Citrate 25 mcg 09/04/23 21:00 09/04/23 22:22 Fentanyl 50 Mcg/Ml Sdv IVP 25 mcg Q4HR PRN Administration Abdominal Pain Hydrochlorothiazide 25 mg 09/04/23 09:00 09/05/23 09:15 Hydrochlorothiazide 25 Mg Tablet PO 25 mg QAM DIDI Administration CEFTRIAXONE/D5W 1 GM PREMIX 1 gm in 50 mls @ 75 mls/hr 09/04/23 21:00 09/04/23 20:14 Rocephin 1 Gm/50 Ml D5w IV 09/07/23 20:59 75 mls/hr BEDTIME DIDI Administration Metronidazole 500 mg in 100 mls @ 100 mls/hr 09/04/23 05:00 09/05/23 05:11 Flagyl 500 Mg/100 Ml IV 09/07/23 04:59 100 mls/hr Q8HR DIDI Administration Acetaminophen 1,000 mg in 100 mls @ 400 mls/hr 09/03/23 22:34 09/04/23 19:30 Acetaminophen IV 400 mls/hr Q6HR PRN Administration Pain Irbesartan 150 mg 09/04/23 09:00 09/05/23 09:14 Irbesartan 150 Mg Tablet PO 150 mg BID DIDI Administration Levothyroxine Sodium 50 mcg 09/04/23 06:00 09/05/23 05:11 Levothyroxine Sodium 50 Mcg Tablet PO 50 mcg 0600 DIDI Administration Metoclopramide HCl 5 mg 09/03/23 22:37 Metoclopramide Hcl 10 Mg/2 Ml IVP Q6HR PRN nausea Naloxone HCl 2 mg 09/04/23 11:16 Naloxone Hcl 2 Mg/2 Ml Disp.Syrin IM Q2MIN PRN POSS>3 Nifedipine 90 mg 09/04/23 09:00 09/05/23 09:15 Nifedipine 30 Mg Tab.Er.24 PO 90 mg DAILY DIDI Administration Ondansetron HCl 4 mg 09/03/23 22:37 Ondansetron Hcl/Pf 4 Mg/2 Ml Sdv IVP Q6H PRN Nausea / Vomiting Pantoprazole Sodium 40 mg 09/04/23 09:45 09/05/23 09:13 Pantoprazole Sodium 40 Mg Vial IVP 40 mg BID DIDI Administration Promethazine HCl 25 mg 09/04/23 21:00 09/04/23 22:17 Promethazine Hcl 25 Mg Tablet PO 25 mg Q6H PRN Administration Nausea / Vomiting Propafenone HCl 225 mg 09/04/23 09:00 09/05/23 09:14 Propafenone Hcl 150 Mg Tablet PO 225 mg TID DIDI Administration Rosuvastatin Calcium 5 mg 09/04/23 21:00 09/04/23 22:21 Rosuvastatin Calcium 10 Mg Tablet PO 5 mg BEDTIME DIDI Administration Sucralfate 1 gm 09/04/23 21:05 09/05/23 10:38 Sucralfate Susp 1 Gm/10 Ml Cup PO 1 gm ACHS2 DIDI Administration Plan Plan: 1. Acute colitis of cecum - Cont rocephin and metronidazole, advance diet as tolerated. fentanyl, tylenol for pain. Zofran or phenergan for nausea. Would recommend f/u with GI after hospitalization due to history of anal cancer. 2. Gastritis - Improving. Mylanta, tums, pepcid, and protonix ordered. Added carafate. 3. Suspect UTI - Rocephin ordered. Urine culture pending. 4. Right lung nodule, 1 cm - F/u outpatient 5. A fib - Cont home meds 6. Hypertension - Cont home meds 7. NSVT - Pt was asymptomatic. Mag normal. K+ 3.5. Will give oral supplementation with goal of 4. DVT Prophylaxis: Ambulation Dispo: Poss d/c tomorrow Review Statement Review Statement: I have personally discussed and reviewed the patient's visit/currently labs/imaging/decision making with Dr. Johnson, my supervising attending. Greater that 50 minutes spent with patient, 50% of the time spent with this patient was devoted to counseling and coordination of care.
[2023-09-05] MEDS: K-DUR PO ONE (13:26)
[2023-09-05] MEDS: REGLAN IVP PRN (13:27)
--- NOTE | 2023-09-05 13:51 | RS.PTINEVL ---
Subjective Patient information Date of Evaluation: 09/05/23 Date of Arrival on Unit: 09/04/23 Admitted From:: Home Diagnosis: acute colitis of cecum Usual Living Arrangement: With Spouse Living Arrangement Comments: WITH SPOUSE(spouse is in hospital in [place]) Home Environment: House Medical History: Hypertension, Arthritis and Cancer (anal CA) Medical History Comments:: afib, kidney disease, GI bleed LATEX ALLERGY?: No Surgical History Comments:: s/p colon resection, watchman device placed Medications: see chart Subjective Information/ Patient Comments:: pt states that she has been getting up and going to bathroom on her own in her room. pt states she has had no LOB or dizziness. 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 Current Level of Function: Partially Dependent Pain Assessement Location Abdomen: Description: Sharp Pain Behavior: Moaning, Guarding and Rubbing Site Pain Aggravating Factors: ADL's, Changing Position and Exercise/Activity Pain Alleviating Factors: Medication Interventions Objective Patient Orientation: Person, Place, Time and Situation Current Interventions: IV's and Telemetry Range of Motion ROM Right Upper Extremity AROM: WFL's (stiffness in R shoulder ) Left Upper Extremity AROM: WFL's Right Lower Extremity AROM: WFL's Left Lower Extremity AROM: WFL's Muscle Strength Muscle Strength Right Upper Extremity: Mild Weakness (4+/5) Left Upper Extremity: Mild Weakness (4+/5) Right Lower Extremity: Mild Weakness (hip flex 4+/5, knee flex/ext 4+/5, ankle DF/PF 4+/5) Left Lower Extremity: Mild Weakness (hip flex 4+/5, knee flex/ext 4+/5, ankle DF/PF 4+/5) Sensation Sensation Right Upper Extremity: Intact/Normal Left Upper Extremity: Intact/Normal Right Lower Extremity: Intact/Normal Left Lower Extremity: Intact/Normal Palpation Palpation Findings: Tenderness (R cervical area) and Muscle Guarding Balance Sitting Balance and Reactions Static Sitting Balance: Normal Dynamic Sitting Balance: Normal Standing Balance and Reactions Static Standing Balance: Good Dynamic Standing Balance: Fair (fair+) Functional Mobility Bed Mobility Rolling R/L: Independent Scooting: Independent Supine to Sit: Independent Sit to Supine: Independent Transfers Sit to Stand: Independent Stand to Sit: Independent Safety Awareness Safety Awareness: Good JULIAN INDEX SCORE: n/a Ambulation Ambulation Assistive Device Used: Gait belt Orthotic/Prosthetic Device: No Distance: 140ft Assistance needed with Ambulation: Supervision and CGA Gait Deviations: Forward posture and Short stride Ambulation Comments: pt with 2 standing rest Factors Affecting Ambulation: Weakness and Limited Endurance Treatment time Time with patient Length of Evaluation: 19 Total treatment time: 29 Patient Education Education Patient Education: Activity Modification and Education of Plan of Care Teaching Recipient: Patient Teaching Methods: Discussion Comments: discussion regarding home safety Assessment Assessment Problem List:: Weakness Rehab Potential: Good Further Therapy Indicated?: No Candidate for Swing Bed for Therapy Services?: pt is not a candidate for swing due to high functional level. Comments: Feel pt does not require skilled PT at this time due to pt is up ad brett in room and amb w/o LOB, w/o AD Evaluation Complexity: HISTORY: Medium, EXAM OF BODY SYSTEMS: Medium, CLINICAL PRESENTATION: Medium and CLINICAL DECISION MAKING: Medium Patient's Goal(s): Return home to care for Plan Frequency of Treatment: One time treatment Duration of Treatment: One Time Treatment Anticipated Discharge Destination: Home Treatment Diagnosis (ICD 10 Codes): [id number] Has the Physician been added for Co-signature?: Yes
--- NOTE | 2023-09-05 16:37 | RS.OTINEVL ---
Subjective Patient information Date of Evaluation: 09/05/23 Date of Arrival on Unit: 09/04/23 Admitted From:: Home Diagnosis: Colitis PRECAUTIONS: Fall risk Usual Living Arrangement: With Spouse Living Arrangement Comments: WITH SPOUSE(spouse is in hospital in [place]) Home Environment: House Medical History: Hypertension, Arthritis and Cancer (anal CA) Medical History Comments:: afib, kidney disease, GI bleed LATEX ALLERGY?: No Surgical History Comments:: s/p colon resection, watchman device placed Medications: see chart Subjective Information/ Patient Comments:: "I have IBS now." Level of function Prior to this admission, the patient could do the following:: Independent Selfcare, Independent ADL's, Independent Ambulation, 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 Was using a cane after she had Covid due to weakness. Current Level of Function: Independent Pain Assessment Pain Pain Score: 5 Side: left Pain Location Body Site: Abdomen Pain Aggravating Factors: Sitting Pain Alleviating Factors: Medication and Lying Supine Interventions Objective Patient Orientation: Person, Place, Time and Situation Current Interventions: IV's and Telemetry Observation: Pt was independent with sitting EOB, standing and walking around the square. Pt has Full LUE AROM. RUE has reduced AROM and her neck bothers her. Pt is to start Outpatient therapy soon. Interventions ROM Right Upper Extremity AROM: Moderate limitation Left Upper Extremity AROM: WFL's Strength Right Upper Extremity: Mild Weakness Left Upper Extremity: Mild Weakness Sensation Right Upper Extremity: Intact/Normal Left Upper Extremity: Intact/Normal Balance Sitting Balance Static Sitting Balance: Normal Dynamic Sitting Balance: Normal Standing Balance Static Standing Balance: Good Dynamic Standing Balance: Good ADL Skills Self Feeding Self Feeding: Independent Grooming Grooming: Independent Grooming Set-up: Sitting Bathing Bathing UE: Independent Bathing LE: Independent Bathing Set-up: Shower Dressing Dressing UE: Independent Dressing LE: Independent Toilet Management Toilet Hygiene: Independent Toilet Clothing Management: Independent Comments Comments:: Pt has been going to the bathroom independently. Functional Mobility Bed Mobility Rolling R/L: Independent Scooting: Independent Supine to Sit: Independent Sit to Supine: Independent Transfers Sit to Stand: Independent Stand to Sit: Independent Stand Pivot Transfers: Independent Ambulation Weight Bearing Status: FWB Assistive Device Used: No Assistive Device Assistance needed with Ambulation: Independent Safety Awareness Safety Awareness: Good JULIAN INDEX SCORE: . Additional Treatment Performed Time with patient Length of Evaluation: 18 Total treatment time: 19 Activities Do you enjoy playing games?: Yes Would you be interested in leaving your room for activities?: Yes Would you enjoy group activities?: Yes Do you have difficulty with your vision?: No Patient Interests:: Watching Television and Visiting/Socializing Patient Education Patient Education: Education of Plan of Care Teaching Recipient: Patient Teaching Methods: Discussion and Demonstration Assessment Problem List:: Pain limits previous level of function Rehab Potential: Good Further Therapy Indicated?: Yes Evaluation Complexity: HISTORY: Medium, EXAM OF BODY SYSTEMS: Medium and CLINICAL DECISION MAKING: Medium Patient's Goal(s): To get well and go home for outpatient therapy. Short Term Goals Goals GOAL 1: No goals at this time. Polarity Tester Goals GOAL 1: No goals at this time. Plan Frequency of Treatment: Evaluation only. Duration of Treatment: Eval only Anticipated Discharge Destination: Home Treatment Diagnosis (ICD 10 Codes): Weakness R53.1 Has the Physician been added for Co-signature?: Yes
[2023-09-05] MEDS ORDERED: COLACE PO PRN (18:27)
[2023-09-05] MEDS: LOMOTIL PO ONE (20:51)
[2023-09-05] MEDS: LACTATED RINGERS 1,000 ML IV SCH (22:27)
[2023-09-06 05:24] VITALS: RESP 18
[2023-09-06 05:39] LABS: HEMATOCRIT 38.3 % (37.0-47.0); HEMOGLOBIN 12.4 g/dl (12.0-16.0); MEAN CORPUSCULAR HEMOGLOBIN 30.8 pg (27.0-31.0); MEAN CORPUSCULAR HGB CONC 32.4 (31.8-35.4); PLATELET COUNT 199 10^3/uL (140-440); RDW COEFFICIENT OF VARIATION 11.9 % (11.6-14.8); RED BLOOD COUNT 4.03 10^6/ul (4.20-5.40); WHITE BLOOD COUNT 10.02 K/ul (4.6-10.2)
[2023-09-06 05:54] LABS: ALANINE AMINOTRANSFERASE 33.4 U/L (0-35); ALBUMIN 4.58 g/dL (3.5-5.0); ALKALINE PHOSPHATASE 95.3 U/L (53-141); ASPARTATE AMINO TRANSFERASE 32.3 U/L (14-36); BILIRUBIN,TOTAL 0.76 mg/dL (0.2-1.3); BLOOD UREA NITROGEN 17.2 mg/dL (7-17); CALCIUM 9.53 mg/dL (8.4-10.2); CARBON DIOXIDE 17.2 mmol/L (22-30.0); CHLORIDE 108.3 mmol/L (98-107); CREATININE 1.31 mg/dL (0.60-1.30); GLUCOSE 104.9 mg/dL (74-106); LIPASE 66.5 U/L (23-300); POTASSIUM 3.57 mmol/L (3.5-5.1); SODIUM 139.2 mmol/L (134.5-145); TOTAL PROTEIN 7.61 g/dL (6.3-8.2)
[2023-09-06 06:16] LABS: ANISOCYTOSIS NOT PRESENT (NOT PRESENT)
[2023-09-06] MEDS: IMODIUM PO PRN (06:30)
[2023-09-06] MEDS: LOMOTIL PO ONE (08:21)
[2023-09-06] MEDS: CALMOSEPTINE OINTMENT TP SCH (09:52)
[2023-09-06] MEDS: LACTATED RINGERS 1,000 ML IV SCH (09:53)
[2023-09-06 12:46] LABS: BLOOD UREA NITROGEN 18.4 mg/dL (7-17); CALCIUM 9.31 mg/dL (8.4-10.2); CARBON DIOXIDE 21.7 mmol/L (22-30.0); CHLORIDE 106.8 mmol/L (98-107); CREATININE 1.17 mg/dL (0.60-1.30); GLUCOSE 113.9 mg/dL (74-106); SODIUM 137.6 mmol/L (134.5-145)
[2023-09-06 12:47] LABS: POTASSIUM 3.55 mmol/L (3.5-5.1)
--- NOTE | 2023-09-06 13:18 | DCSUM ---
Admission Date Admission Date: 09/03/23 Discharge Date Discharge Date: 09/06/23 Admission Diagnosis Admission Diagnosis: 1. Acute colitis of cecum Discharge Diagnosis Discharge Diagnosis: 1. Acute colitis of cecum 2. Gastritis - Improved 3. Suspect UTI - ruled out. 4. Right lung nodule, 1 cm - cont f/u outpatient 5. A fib - Cont home meds 6. Hypertension - Cont home meds Hospital Provider Hospital Provider: [facility] Summary of History and Physical Summary of History and Physical: Patient is a 72 year old female with pmhx of anal cancer s/p resection/chemo/radiation 4 years ago, hypertension, a fib s/p watchman device, who presents to ER with complaints of abdominal pain. Pt states she had right sided colitis a year ago requiring antibiotics. Last colonoscopy was summer which was normal, return in 5 years per patient. She denies vomiting but has had some nausea. No change in BMs. Describes pain as epigastric, stabbing. Does not take NSAIDs. In ER ct noted inflammation/infection of cecum area. WBC count was 16. She was given rocephin and metronidazole. Admitted to med surg. Hospital Course Subjective: The day following admission on 09/03 patient complained of severe epigastric pain, no RLQ pain. States it was like a knife in her stomach, and a burning hole. States she has hx of ulcers many years ago. She was tearful and uncomfortable. She was treated with protonix, pepcid, mylanta, tums, zofran, phenergan, morphine, fentanyl throughout the day. She finally had some mild relief. By the following day on 09/04 her epigastric pain was improved, but then was having RLQ pain. She was requesting a stool softener as she had not had a BM and felt it was causing her discomfort. She had one colace PO. She then had watery diarrhea stools that night. This has greatly improved by morning of 09/05. Infection markers normal. Labs and vitals stable. She is pain free. Pt is requesting to go home to care for her . Discussed need for GI f/u due to her hx of anal cancer and now with evidence of colitis and her severe gastritis like symptoms. Will discharge on protonix, reglan, cefdinir and metronidazole. Pt states she cannot tolerate pcns, and we avoided fluoroquinolones due to being on propafenone and concern for causing QT prolongation. Pt was able to tolerate PO diet prior to dc. Appearance: Pleasant, No Apparent Distress, Alert, Well-appearing and Well- nourished HEENT: MMM and Supple CVS: No Murmur Abdomen: Soft, Non-Tender and No Distention Respiratory: No Accessory Muscle Use Extremities: No Edema Vital Signs: Most Recent Vital Signs Temperature 97.5 F L 09/06/23 05:23 Temperature Source Temporal Artery Scan 09/06/23 05:23 Temperature Source Infrared 09/03/23 20:43 Pulse Rate 72 09/06/23 05:23 Respiratory Rate 18 09/06/23 05:23 Blood Pressure 128/59 L 09/06/23 05:23 Blood Pressure Mean 82 09/06/23 05:23 Blood Pressure Left Arm 136/83 09/04/23 00:36 Blood Pressure Location Left Arm 09/06/23 05:23 Blood Pressure Position Supine 09/06/23 05:23 O2 Sat by Pulse Oximetry 99 09/06/23 05:23 Oxygen Delivery Method Room Air 09/06/23 05:23 Height 5 ft 5 in 09/04/23 00:36 Weight 160 lb 4.8 oz 09/04/23 00:36 Telemetry Type Remote Telemetry 09/06/23 07:00 Telemetry Monitoring Continues 09/06/23 07:00 Irregular Telemetry Rate (Approximate) 50-60 BPM 09/05/23 13:00 Telemetry Heart Rate 76 09/06/23 07:00 EKG AR Interval 0.2 09/06/23 07:00 EKG QRS Interval 0.03 L 09/06/23 07:00 Telemetry Strip Reading SR 09/06/23 07:00 Imaging: EXAM: CT OF THE ABDOMEN AND PELVIS WITHOUT CONTRAST. TECHNIQUE: CT of the abdomen and pelvis was performed without the use of contrast. Multiplanar reformats were performed. HISTORY: Abdominal pain. COMPARISON: None. FINDINGS: Evaluation of solid organs and blood vessels is suboptimal without the benefit of contrast. Imaged lower thorax: 1.0 cm nodule, partially imaged on axial image 1. 0.3 cm nodule in the right lower lobe. Coronary artery calcificaions. Liver: Diffuse liver parenchymal hypoattenuation. A few scattered calcified granulomas in the liver. Gallbladder/Bile Ducts: No biliary dilation. Gallbladder is unremarkable. Spleen: Scattered calcified granulomas in the spleen. Pancreas: Unremarkable. Adrenals: Unremarkable. Kidneys/Ureters: Unremarkable. Bowel/mesentery/peritoneum: Small hiatal hernia. Normal appendix. Focal thickeni ng of the wall of the cecum. No free air or ascites. Retroperitoneum/vessels: No aortic aneurysm. Mild scattered atherosclerotic calcifications. Pelvis: Post hysterectomy. Bones/body wall: No aggressive lesion identified. Multilevel degenerative changes of the spine. IMPRESSION: Focal thickening of the wall the cecum could represent infection/inflammation or neoplasm. Colonoscopy should be considered if not performed recently. 1 cm nodule in the right lobe of the lung. Recommend further evaluation with chest CT. Small hiatal hernia. Fatty infiltration of the liver. Atherosclerosis with coronary calcifications. Lab Results Last 24 Hours: 09/06/23 09/06/23 11:55 05:31 WBC 10.02 RBC 4.03 L Hgb 12.4 Hct 38.3 MCV 95.0 MCH 30.8 MCHC 32.4 RDW Coeff of Daniel 11.9 Plt Count 199 Neutrophils % (Manual) 60.0 Band Neutrophils % 4.0 Lymphocytes % (Manual) 14.0 Monocytes % (Manual) 16.0 H Reactive Lymphocytes 6.0 H Anisocytosis Not present Sodium 137.6 139.2 Potassium 3.55 3.57 Chloride 106.8 108.3 H Carbon Dioxide 21.7 L 17.2 L Anion Gap 12.65 17.27 BUN 18.4 H 17.2 H Creatinine 1.17 1.31 H Estimated GFR (MDRD) 45.00 40.00 BUN/Creatinine Ratio 15.72 13.12 Glucose 113.9 H 104.9 Calcium 9.31 9.53 Total Bilirubin 0.76 AST 32.3 ALT 33.4 Alkaline Phosphatase 95.3 Total Protein 7.61 Albumin 4.58 Globulin 3.03 Albumin/Globulin Ratio 1.51 Lipase 66.5 Discharge Instructions Discharge Planning: Discharge Planning > [address] Jt Johnson. Discharge Medications: Medications at Discharge (Home Meds & RX) Discharge Plan Discharge Discharge Orders: Discharge Patient (ONCE); Ordered 09/06/23 Ordered By: NIRANJAN DIAL Activity Restrictions/Additional Instructions: DISCHARGE TO HOME DX COLITIS, GASTRITIS PHARMACY: [facility] DIET: PROGRESS TOLERATED ACTIVITY: TOLERATED F/U WITH GI AND PCP SCHEDULED MAY TAKE PEPCID, MYLANTA, TUMS (OVER THE COUNTER) FOR EPIGASTRIC PAIN Instructions: Colitis (ED) Care Plan Goals: Problem: Diarrhea Goal: Achieve optimal elimination pattern Instructions: Evaluate causative factors of diarrhea Stool Assessment Perineal skin care Patient Disposition: HOME SELF-CARE Prescriptions: New pantoprazole [Protonix] 40 mg tablet,delayed release (DR/EC) 40 mg PO DAILY Qty: 30 0RF metronidazole 500 mg tablet 500 mg PO Q8H 4 Days Qty: 12 0RF metoclopramide HCl [Reglan] 5 mg tablet 5 mg PO Q6H PRN (Reason: nausea and vomiting) Qty: 14 0RF cefdinir 300 mg capsule 300 mg PO BID 4 Days Qty: 8 0RF Continued propafenone 225 mg tablet 225 mg PO TID levothyroxine 50 mcg tablet 50 mcg PO QAM hydrochlorothiazide 25 mg tablet 25 mg PO QAM irbesartan 150 mg tablet 150 mg PO BID rosuvastatin 5 mg tablet 5 mg PO BEDTIME diltiazem HCl [Cardizem] 120 mg tablet 120 mg PO BID Rx Instructions: one mid day, one at bedtime aspirin [Adult Low Dose Aspirin] 81 mg tablet,delayed release (DR/EC) 81 mg PO DAILY nifedipine 90 mg tablet extended release 24hr 90 mg PO DAILY Patient Comments: TAKE 1 TABLET BY MOUTH DAILY Did you review [place] [employer] for ALL controlled substances?: Not Applicable Discussed opioids are addictive and Narcan is available by prescription or from pharmacy.: No Condition: Stable Referrals: KENDY LOPEZ [REFERRING] - 09/20/23 1:00 pm SHENA CARRERA [REFERRING] - 09/13/23 10:00 am
[2023-09-06 13:47] VITALS: BP 126/59; PULSE 77; TEMP 98.3
== END 2023-09-06 14:29 | disposition home or self-care (01) | DRG 392 ==
LOC: MEDSURG B 20:34 → ED 20:34 → INTOOBSV 23:33 → OBSVTOIN 23:33 → MEDSURG B 09-04 00:40
PROVIDERS: ADMIT Physician Assistant; ATTEND Hospitalist
DX: Z20.822 Contact with and (suspected) exposure to COVID-19; K29.70 Gastritis, unspecified, without bleeding; R91.1 Solitary pulmonary nodule; K52.89 Other specified noninfective gastroenteritis and colitis; D72.829 Elevated white blood cell count, unspecified; Z85.048 Personal history of other malignant neoplasm of rectum, rectosigmoid junction, and anus; I48.91 Unspecified atrial fibrillation; Z79.899 Other long term (current) drug therapy; Z51.81 Encounter for therapeutic drug level monitoring; I10 Essential (primary) hypertension